=== PATIENT | female | born 1975 | race African-American/Black ===

== ENCOUNTER 2016-09-26 19:45 | Emergency (ER) | payer MEDICAID ==
[2016-09-26 19:56] VITALS: BP 157/102; PULSE 104; TEMP 100; BMI 38.4
--- NOTE | 2016-09-26 20:26 | EDPRACDOC ---
- General Information Chief Complaint: Sore Throat Stated Complaint: SORE THROAT, BODY ACHES Time Seen by Provider: 09/26/16 20:16 Information Source: Patient Mode Of Arrival: Car Home Medications: Home Medications Hydrochlorothiazide 25 mg PO QAM #30 tablet 05/30/16 Acetaminophen with Codeine [TYLENOL WITH CODEINE; [employer] with Codeine] 5 ml PO Q4-6H PRN #120 ml 09/26/16 Amoxicillin Trihydrate [Amoxicillin] 500 mg PO TID #30 tab 09/26/16 Ibuprofen 600 mg PO TID #20 tablet 09/26/16 Allergies/Adverse Reactions: Allergies Allergy/AdvReac Type Severity Reaction Status Date / Time tramadol Allergy See Verified 05/30/16 16:50 Comments - History of Present Illness Onset: 2-3 days HPI: PT PRESENTS TODAY WITH SORE THROAT AND FEVER SINCE YESTERDAY. ALSO GENERAL MALAISE. DENIES RUSH, CP, SHOB, ABD PAIN, N/V/D. Sore Throat Symptoms: Reports: Pain Recent: Reports: None Relevant History of: Reports: None Pain Severity: Reports: Moderate Urinary Output: Normal Oral Intake: Normal Associated Signs and Symptoms: Reports: Fever ED Past Medical History - History Reviewed Yes Nurses notes reviewed and agree except as marked - Patient Medical History Psychological History: Denies: Depression - Social Medical History Smoking Status: Former smoker EDM Review of Systems - Review of Systems ROS Negative Except as Marked: Yes All systems reviewed and were negative except as marked Constitutional: Fever Eyes: No Symptoms Reported Ears: No Symptoms Reported Throat: Pain, Swelling Nose: No Symptoms Reported Respiratory: No Symptoms Reported Cardiovascular: No Symptoms Reported Gastrointestinal: No Symptoms Reported Neurological: No Symptoms Reported Musculoskeletal: No Symptoms Reported Integumentary: No Symptoms Reported - Physical Exam Constitutional: Alert (Awake), No apparent distress Oriented to: Time, Person, Place Last recorded Vital Signs: Last Vital Signs Temp 100 F 09/26/16 19:50 Pulse 104 09/26/16 19:50 Resp 20 09/26/16 19:50 BP 157/102 H 09/26/16 19:50 Pulse Ox 99 09/26/16 19:50 Oxygen Pulse Oxygen Saturation 99 O2 Device Oxygen Flow Rate Fraction of Inspired Oxygen ( FIO2) - HEENT Head: Normal Eye Exam: Normal Oropharynx: Red, Tonsillar Hypertrophy, [place] Tympanic Membrane: Normal ENT EAC: Normal Nose: No Symptoms Reported Neck: Normal, Denies Pain, Midline - Respiratory/Cardiovascular Respiratory: Normal - CTA Cardiovascular: Normal - GI Palpation: Normal Tenderness: Non tender - Musculoskeletal Back: Normal Extremities: Normal - Integumentary Skin: Normal Lymphatics: Normal - Neurologic Cerebellar: Normal Mood Description: Normal Thought: Coherent Perception: Normal Decision Time to Discharge: 20:25 - Departure Disposition: Home Condition: Good Final Diagnosis: Streptococcal sore throat Instructions: Strep Throat (ED) Education/Counseling Given To: Patient Education/Counseling Given Regarding: Diagnosis, Treatment, Follow Up Referrals: Patrick Trejo MD [Primary Care Provider] - One Week Prescriptions: New Acetaminophen with Codeine [TYLENOL WITH CODEINE; [employer] with Codeine] 5 ml PO Q4-6H PRN #120 ml PRN Reason: Pain Amoxicillin Trihydrate [Amoxicillin] 500 mg PO TID #30 tab Ibuprofen 600 mg PO TID #20 tablet No Action Hydrochlorothiazide 25 mg PO QAM #30 tablet Additional Instructions: DO NOT SHARE DRINKS/FOOD. WASH HANDS FREQUENTLY. PLENTY OF FLUIDS AND REST.
== END 2016-09-26 20:33 | disposition home or self-care (01) ==
LOC: EDMC 19:45
DX: J02.0 Streptococcal pharyngitis (principal)
CPT/HCPCS: 99282